=== PATIENT | male | born 1950 | race Caucasian/White ===

== ENCOUNTER → 2020-06-19 17:08 | Outpatient (CLI) | payer MEDICARE, BC, SELFPAY ==
--- NOTE | 2020-06-19 17:12 | MRI_ITS ---
STUDY: MRI LUMBAR SPINE WITHOUT CONTRAST REASON FOR EXAM: Male, 69 years old. radiculopathy, stenosis -- pain bilat hips, legs x 10 months, pain injections not helping TECHNIQUE: Standardized fat and water weighted pulse sequences were obtained in the sagittal and axial planes. COMPARISON: None FINDINGS: T12-L1: Normal endplates. Normal disc height, hydration and morphology. Normal bilateral facet joints. Normal central canal and bilateral lateral recesses. Normal bilateral intervertebral neural foramina. Normal lumbar lordosis. There is no substantial scoliosis. Normal conus medullaris that terminates at the L1 level. L1-2: Normal endplates. Normal disc height, hydration and morphology. Normal bilateral facet joints. Normal central canal and bilateral lateral recesses. Normal bilateral intervertebral neural foramina. Mild circumferential disc marginal osteophyte. L2-3: Normal endplates. Normal disc height, hydration and morphology. Normal bilateral facet joints. Normal central canal and bilateral lateral recesses. Moderate narrowing left intervertebral neural foramina. Circumferential disc marginal osteophyte. L3-4: Normal endplates. Normal disc height, hydration and morphology. Normal bilateral facet joints. Normal central canal and bilateral lateral recesses. Moderate narrowing left intervertebral neural foramina. Circumferential disc marginal osteophyte. L4-5: Normal endplates. Normal disc height, hydration and morphology. Normal bilateral facet joints. Normal central canal and bilateral lateral recesses. Hypertrophic facet disease and narrowed bilateral intervertebral neural foramina. L5-S1: Normal endplates. Normal disc height, hydration and morphology. Normal bilateral facet joints. Normal central canal and bilateral lateral recesses. Circumferential disc marginal osteophyte. Narrowed bilateral intervertebral neural foramina. Normal visualized sacral ala. Normal visualized paraspinous soft tissue structures. MRI/Spine Lumbar (Routine) IMPRESSION: Multilevel spinal stenosis as above Electronically Signed: Billy Saavedra MD at 21:55 EDT , Service support ,
== END ==
PROVIDERS: PCP Family Medicine; Referring Provider Anesthesiology Pain Medicine; Visit Provider Anesthesiology Pain Medicine
DX: M51.37 Other intervertebral disc degeneration, lumbosacral region (principal); M54.16 Radiculopathy, lumbar region; M47.817 Spondylosis without myelopathy or radiculopathy, lumbosacral region; M48.062 Spinal stenosis, lumbar region with neurogenic claudication
CPT/HCPCS: 72148

== ENCOUNTER → 2021-02-07 15:17 | Outpatient (CLI) | payer MEDICARE, BC, SELFPAY ==
--- NOTE | 2021-02-07 | COLBX_PTH ---
PATIENT: CHRISTIANA ALONZO LOC: [facility] U#:[id number] AGE/SX: 75/M ROOM: RE02/07/[address]: Dr. Rojelio Gunn MD : 1950 BED: DIS: SPEC #: [id number] RECD: 02/07/21 15:02 STATUS: GRIFFIN DIOR #: [id number] LISA: 02/07/21 00:[address]: Rojelio Gunn DEPT: SURGICAL PATHOLOGY RECD BY: Hyun Valencia ENTERED: 02/10/21 08:20 SP TYPE: COLON BX OTHR DR: Dr. Christiana Hensley MD [facility] Tissues: A - Sigmoid colon biopsy B - Sigmoid colon biopsy Procedures: Surgery Specimen Level IV Comments: This report has an addendum due to routine QC review by the pathologists. HEADER OPERATION: Colonoscopy with cold snare PRE-OP DIAGNOSIS: Screening colonoscopy TISSUE SUBMITTED: A - Cold snare of sigmoid polyp 20 cm, rule out adenoma, B - Polyp distal sigmoid at 10 cm, rule out adenoma MICROSCOPIC DIAGNOSIS A. Sigmoid polyp at 20 cm, biopsy: Fragments of tubular adenoma. B. Polyp distal sigmoid at 10 cm, biopsy: Tubular adenoma. CHALINO:johanne 02/11/2021 MICROSCOPIC DESCRIPTION Slides are reviewed. GROSS DESCRIPTION A - Received in fixative is one container labeled with the patient's name and designated polyp sigmoid 20 cm. The specimen consists of multiple irregular fragments of light quinonez soft tissue that in aggregate measure 1 x 0.6 x 0.2 cm. The specimen is totally submitted in one cassette. B - Received in fixative is one container labeled with the patient's name and designated polypectomy distal sigmoid at 10 cm. The specimen consists of a quinonez-pink polyp measuring 0.7 x 0.5 x 0.3 cm. The specimen is totally submitted in one cassette. / CHALINO:johanne 02/10/21 TC:1 CPT: 07074 x2 ADDENDUM ADDENDUM ADDENDUM ADDENDUM ADDENDUM 02/11/2021 13:03 ADDENDUM 02/11/2021 13:03 ADDENDUM 02/11/2021 13:03 ADDENDUM 02/11/2021 13:03 ADDENDUM 02/11/2021 13:03 B. Polyp distal sigmoid at 10 cm, biopsy: Dr. Suzie rock inflammatory polyp. SJ:johanne 02/11/2021
== END ==
PROVIDERS: PCP Family Medicine; Referring Provider Internal Medicine Gastroenterology; Visit Provider Internal Medicine Gastroenterology
DX: Z12.11 Encounter for screening for malignant neoplasm of colon (principal)
CPT/HCPCS: 88305

== ENCOUNTER → 2022-09-04 | Outpatient (CLI) | payer MEDICARE, BC, SELFPAY ==
--- NOTE | 2022-09-04 | KNEE_PTH ---
PATIENT: ROVERTO ALONZO LOC: [facility] U#:[id number] AGE/SX: 72/M ROOM: RE09/04/[address]: Dr. Henry Adams MD : 1950 BED: DIS: 09/04/2022 SPEC #: [id number] RECD: 09/04/22 14:58 STATUS: GRIFFIN DIOR #: [id number] LISA: 09/04/22 00:[address]: Henry Adams DEPT: SURGICAL PATHOLOGY RECD BY: Johnny Grove ENTERED: 09/07/22 07:21 SP TYPE: TOTAL KNEE OTHR DR: Dr. Bk Schmitt MD [facility] Tissues: Knee, NOS Procedures: Decalcification bone/plaque Surgery Specimen Level IV HEADER OPERATION: Left total knee arthroplasty PRE-OP DIAGNOSIS: Left knee posttraumatic arthritis grade 4 TISSUE SUBMITTED: Left knee bone and tissue MICROSCOPIC DIAGNOSIS Bone and tissue of left knee, total knee resection: Severe degenerative joint disease. Mild synovial hyperplasia. AM:johanne 09/09/2022 MICROSCOPIC DESCRIPTION Slides are reviewed. GROSS DESCRIPTION Received is one container designated bone and soft tissue left knee. The specimen consists of multiple fragments of quinonez-yellow bone measuring in aggregate 17 x 15 x 1.5 cm. Also in the specimen container are multiple fragments of yellow-white soft tissue measuring in aggregate 7 x 3 x 2 cm. A number of bony fragments contain articular surfaces consistent with tibial plateau and femoral condyle and displaying prominent osteophyte formation, eburnation, and bone erosion. Terminal Operator sections are submitted in two cassettes as follows: 1 - soft tissue, 2 - bone after decalcification. / AM:johanne 09/07/2022 TC:5 CPT: 13270, 90174
== END | disposition home or self-care (01) ==
PROVIDERS: PCP Internal Medicine; Visit Provider Orthopaedic Surgery
DX: M13.862 Other specified arthritis, left knee (principal)
CPT/HCPCS: 88305; 88311

== ENCOUNTER 2022-10-07 14:46 | Outpatient (CLI) | payer MEDICARE, BC, SELFPAY ==
--- NOTE | 2022-10-07 14:52 | VDLE_ITS ---
Reason For Study: LEG PAIN RIGHT LEFT CFV is compressible, spontaneous, phasic, GSV is normal. competent and demonstrates normal CFV is compressible, spontaneous, phasic, augmentation. competent, and demonstrates normal Procedure augmentation. This is a venous duplex using B-mode, color FV is compressible, spontaneous, phasic, flow and spectral Doppler. competent and demonstrates normal Exam performed in department. augmentation. The exam was diagnostic. POP V is compressible, spontaneous, phasic, A preliminary report was called and/or faxed competent and demonstrates normal to Dr. Henry Adams. augmentation. T/P Trunk is compressible. PTV is compressible. LT PerV is compressible. VL/Venous Duplex US, Unilateral Interpretation Summary There is no evidence of left lower extremity deep vein thrombosis. Left great s aphenous vein appears patent and compressible segmentally. Normal flow patterns right common femoral vein Ordering Physician: Henry Adams Performed By: Sid Nielson RVT
== END 2022-10-07 23:59 | disposition home or self-care (01) ==
LOC: CVS 14:46
PROVIDERS: PCP Internal Medicine; Visit Provider Orthopaedic Surgery
DX: M79.662 Pain in left lower leg (principal)
CPT/HCPCS: 93971

== ENCOUNTER → 2022-11-30 | Outpatient (CLI) | payer MEDICARE, BC, SELFPAY ==
--- NOTE | 2022-11-30 13:05 | RAD_ITS ---
STUDY: X-RAY - PELVIS AND RIGHT HIP REASON FOR EXAM: Male, 72 years old. PAIN TECHNIQUE: 3 views of the pelvis and hip. COMPARISON: None. FINDINGS: Metallic prosthetic seeds. 17 mm angular radiodensity of the left pelvis may represent a foreign body. There is a non-specific bowel gas pattern. Normal visualized soft tissue structures. Normal bilateral iliac wings, sacroiliac joints and visualized sacrum. Normal bilateral superior and inferior pubic rami. Normal pubic symphysis. Normal bilateral ischial tuberosities. Normal visualized femoral head. Normal acetabulum. Normal hip joint. RAD/HIP, UNI W/ Pelvis 2-3 Views IMPRESSION: Possible foreign body left pelvis. Electronically Signed: Billy Saavedra MD at 23:51 EST ,
== END | disposition home or self-care (01) ==
PROVIDERS: PCP Internal Medicine; Visit Provider Nurse Practitioner Family
DX: M25.551 Pain in right hip (principal)
CPT/HCPCS: 73502